=== PATIENT | male | born 1955 | race Caucasian/White ===

== ENCOUNTER 2019-09-04 09:14 | Observation (INO) ==
[2019-09-04 09:19] VITALS: BMI 27.3
--- NOTE | 2019-09-04 09:40 | DR.ABDMALE ---
HPI Time seen Time Seen by Provider: 09/04/19 09:29 PCP Primary Care Physician: PRISCILA Complaint Chief Complaint Doctors Comments: multiple medical problems, diabetes, heart disease, copd, tobacco abuse Chief Complaint:: PT C/O SEVERE EPIGASTRIC PAIN THAT HAS BEEN GOING ON SINCE WEDNESDAY. PT WAS REFFERRED BY PCP D/T A ABD ULTRASOUND THAT SHOWS PT HAS CHOLELITHIASIS. PT HAS BEEN VOMITTING AND HAVING DIARRHEA. COVID-19 Coronavirus risk:travel/contact w/high risk person: No Has patient experienced Coronavirus symptoms: No Reviewed Nurses Notes Review: Yes Mode of arrival Mode of Arrival: Ambulatory Timing Onset of Chief Complaint: 08/30/19 Came on: Gradually Duration Duration: Intermittent How lon Duration: Days Location Location: RUQ and Epigastric Severity Severity: Moderate Quality Quality: Burning Context Onset: Gradually Modifying factors Worsening Factors: Food Improving Factors: Food Associated signs and symptoms Associated Signs and Symptoms: Nausea, Vomiting and Diarrhea PMH PMH Past Medical History: Yes Past Medical History: Diabetes, Dyslipidemia, GERD, Hypertension, NC and Renal Disease Past Surgical History: Yes Surgical History: Angioplasty/Stents and Ortho Surgery Past Surgical History Comment: SHOULDER, BACK, LEG, LUNG REMOVAL Family History History of Family Medical Conditions: No Social History Does patient currently use any type of tobacco product: Yes Have you used tobacco products in the last 12 months: Yes Type of Tobacco Use: Cigarettes Does any household member use tobacco: Yes Alcohol Use: None Do you use any recreational Drugs:: No Lives With: Family Lives Where: Home Travel Risk Coronavirus risk:travel/contact w/high risk person: No Has patient experienced Coronavirus symptoms: No Infectious screening In the last 2 months have you had wt loss of >10#?: NO Have you had fever, night sweats or hemotysis?: No Have you traveled outside the country in the last 6 months?: No Isolation: Standard ROS Review of Systems Constitutional: No Symptoms Reported Eyes: No Symptoms Reported ENTM: No Symptoms Reported Respiratoy: No Symptoms Reported Cardiovascular: Chest Pain Gastrointestinal/Abdominal: Abdominal Pain, Diarrhea, Nausea and Vomiting Genitourinary: No Symptoms Reported Neurological: No Symptoms Reported Musculoskeletal: No Symptoms Reported Integumentary: No Symptoms Reported Hematologic/Lymphatic: No Symptoms Reported Endocrine: No Symptoms Reported Psychiatric: No Symptoms Reported All Other Systems: Reviewed and Negative PE Vital Signs Vital Signs: Temp Pulse Resp BP Pulse Ox 09/04/19 15:05 97.8 F 87 20 104/55 100 09/04/19 15:00 90 20 112/60 99 09/04/19 14:55 97.8 F 91 H 20 127/71 99 09/04/19 13:31 98.1 F 70 20 120/63 94 L 09/04/19 13:30 73 94 L 09/04/19 13:23 75 09/04/19 12:30 76 22 109/76 09/04/19 12:00 72 20 113/63 09/04/19 11:45 70 20 09/04/19 11:30 71 21 125/62 09/04/19 11:15 72 20 09/04/19 11:00 72 22 126/63 09/04/19 10:45 76 22 09/04/19 10:30 78 23 153/71 09/04/19 10:15 81 22 09/04/19 10:00 80 24 155/73 93 L 09/04/19 09:58 80 95 09/04/19 09:15 98.1 F 90 20 137/85 96 General Limitations: No Limitations General Appearance: Alert Head Head Exam: Normal Inspection and Normocephalic Eyes Eye exam: Normal Appearance and EOMI ENT ENT Exam: Normal Exam Neck Neck Exam: Normal Inspection, Full ROM and Trachea Midline Chest Chest Inspection: Normal Inspection Respiratory Respiratory Exam: Normal Lung Sounds Bilat Respiratory Exam: Bilateral: Clear to Auscultation Cardiovascular Cardiovascular Exam: Regular Rate Abdominal Exam Abdominal Exam: Normal Inspection, Normal Bowel Sounds, Soft and Tenderness (epigastric); negative Distention and Guarding Rectal Rectal Exam: Deferred Back Back Exam: Normal Inspection and Full ROM Extremeties Extremities Exam: Normal Inspection and Full ROM Exam: Male: Deferred Neurologic Neurological Exam: Alert, Oriented X3 and CN II-XII Intact Skin Skin Exam: Warm and Normal Color COURSE Consultation Called: 11:27 Call Returned: 12:27 Consultation Comments: DR. MALLORY saw patient in ER and will take him to surgery. [facility]OR Labs Reviewed Result Diagrams: 09/04/19 09:54 09/04/19 09:54 Laboratory: WBC 10.9 X10^3/uL (3.6-10.0) H 09/04/19 09:54 RBC 5.28 X10^6/uL (4.7-6.0) 09/04/19 09:54 Hgb 16.1 g/dL (13.5-18.0) 09/04/19 09:54 Hct 48.2 % (42.0-54.0) 09/04/19 09:54 MCV 91.3 fL (80.0-100.0) 09/04/19 09:54 MCH 30.4 pg (27.0-34.0) 09/04/19 09:54 MCHC 33.3 g/dL (33.0-35.0) 09/04/19 09:54 RDW 14.4 % (11.6-16.5) 09/04/19 09:54 Plt Count 174 X10^3/uL (150.0-450.0) 09/04/19 09:54 MPV 8.3 fL (7.4-11.0) 09/04/19 09:54 Neut % (Auto) 77.2 % (42.0-75.0) H 09/04/19 09:54 Lymph % (Auto) 14.6 % (21.0-51.0) L 09/04/19 09:54 [place] % (Auto) 7.0 % (0.0-13.0) 09/04/19 09:54 Eos % (Auto) 0.6 % (0.9-2.9) L 09/04/19 09:54 Baso % (Auto) 0.6 % (0.2-1.0) 09/04/19 09:54 Neut # (Auto) 8.4 x10^3/uL (2.2-4.8) H 09/04/19 09:54 Lymph # (Auto) 1.6 X10^3/uL (1.3-2.9) 09/04/19 09:54 [place] # (Auto) 0.8 x10^3/uL (0.3-0.8) 09/04/19 09:54 Eos # (Auto) 0.1 x10^3/uL (0.0-0.2) 09/04/19 09:54 Baso # (Auto) 0.1 X10^3/uL (0.0-0.1) 09/04/19 09:54 Absolute Nucleated RBC 0.0 /100WBC 09/04/19 09:54 PT 12.5 SECONDS (11.8-14.3) 09/04/19 09:54 INR Target Range - 09/04/19 09:54 INR 0.96 (0.8-1.3) 09/04/19 09:54 Sodium 137 mmol/L (136-145) 09/04/19 09:54 Corrected Sodium 137 mmol/L (136-145) 09/04/19 09:54 Potassium 4.1 mmol/L (3.5-5.1) 09/04/19 09:54 Chloride 100 mmol/L (98-107) 09/04/19 09:54 Carbon Dioxide 25.8 mmol/L (21-32) 09/04/19 09:54 BUN 14 mg/dL (7-18) 09/04/19 09:54 Creatinine 1.24 mg/dL (0.70-1.30) 09/04/19 09:54 Est GFR (MDRD) Af Amer > 60 (>60) 09/04/19 09:54 Est GFR (MDRD) Non-Af > 60 (>60) 09/04/19 09:54 Glucose 119 mg/dL (65-99) H 09/04/19 09:54 Calcium 10.3 mg/dL (8.5-10.1) H 09/04/19 09:54 Corrected Calcium TNP 09/04/19 09:54 Magnesium 1.9 mg/dL (1.7-2.9) 09/04/19 09:54 Total Bilirubin 0.90 mg/dL (0.2-1.0) 09/04/19 09:54 AST 18 Units/L (15-37) 09/04/19 09:54 ALT 21 Units/L (12-78) 09/04/19 09:54 Alkaline Phosphatase 95 Units/L (46-116) 09/04/19 09:54 Creatine Kinase 43 Units/L (39-308) 09/04/19 09:54 CK-MB (CK-2) < 1.0 ng/mL (0-4.0) 09/04/19 09:54 CK/CKMB % Calc 2.3 % (<4) 09/04/19 09:54 Troponin I < 0.02 ng/mL (0-1.5) 09/04/19 09:54 Total Protein 8.0 g/dL (6.4-8.2) 09/04/19 09:54 Albumin 4.3 g/dL (3.4-5.0) 09/04/19 09:54 Globulin 3.7 g/dL (2.5-4.5) 09/04/19 09:54 Albumin/Globulin Ratio 1.2 Ratio (1.1-2.1) 09/04/19 09:54 Lipase 385 Units/L (73-393) 09/04/19 09:54 Specimen Type Clean catch urine 09/04/19 10:13 Urine Color Yellow (YELLOW) 09/04/19 10:13 Urine Appearance Hazy (CLEAR) 09/04/19 10:13 Urine pH 8.0 (5.0 - 8.0) 09/04/19 10:13 Ur Specific [place] 1.020 (1.000-1.030) 09/04/19 10:13 Urine Protein 3+ (NEGATIVE) 09/04/19 10:13 Urine Glucose (UA) Negative (NEGATIVE) 09/04/19 10:13 Urine Ketones 2+ (NEGATIVE) 09/04/19 10:13 Urine Occult Blood Negative (NEGATIVE) 09/04/19 10:13 Urine Nitrite Negative (NEGATIVE) 09/04/19 10:13 Urine Bilirubin Negative (NEGATIVE) 09/04/19 10:13 Urine Urobilinogen Normal (NORMAL) 09/04/19 10:13 Ur Leukocyte Esterase 1+ (NEGATIVE) 09/04/19 10:13 Urine RBC None seen /HPF (0-3) 09/04/19 10:13 Urine WBC 0-2 /HPF (0-5) 09/04/19 10:13 Ur Squamous Epith Cells Negative /HPF (NEGATIVE) 09/04/19 10:13 Urine Bacteria Negative /HPF (NEGATIVE) 09/04/19 10:13 Ur Culture Indicated? No/not indicated 09/04/19 10:13 XRAY XRAY Interpreted by: Radiologist X-ray Results: chest: no acute disease, vascular calcifications EKG Rate: 82 [place]: LAD Rhythm: NSR Block: None ST: Nonsp Opioid Opioid Risk Tool Age ([place] box if 16-45): No History of Preadolescent Sexual Abuse: No Total: 0 Total Score Risk Category: Low Risk Copyright: Chand LR predicting aberrant behaviors Diagnosis Discharge Problem: Cholelithiasis Qualifiers: Cholelithiasis location: gallbladder Cholecystitis presence: without cholecystitis Biliary obstruction: without biliary obstruction Qualified Code(s): K80.20 - Calculus of gallbladder without cholecystitis without obstruction
[2019-09-04] MEDS ORDERED: ZOFRAN INJ 4 MG VIAL IVP ONE (09:46)
[2019-09-04] MEDS ORDERED: PROTONIX INJ 40 MG VIAL ONE (09:52)
[2019-09-04] MEDS ORDERED: ZOFRAN INJ 4 MG VIAL ONE ×2 (09:52→12:56)
[2019-09-04] MEDS ORDERED: NS 1000 ML 1,000 ML ONE (09:52)
[2019-09-04] MEDS ORDERED: NS 1000 ML 1,000 ML IV SCH (10:00)
[2019-09-04] MEDS: PROTONIX INJ 40 MG VIAL IVP SCH (10:00)
--- NOTE | 2019-09-04 10:01 | RAD ---
HISTORYCOPD,C/O EPIGASTRIC PAIN, N/V, CHOLELITHIASISSTUDYCHEST, 1 [id number] heart size. There is a lower cervical fusion. There is no evidence of pneumothorax. No evidence of pleural effusionsNo suspicious for focal pneumonia. There is again seen elevation of the right diaphragm. Mild prominence of the aortic knob.IMPRESSIONNo acute cardiopulmonary disease. Stable elevation of the right diaphragm.Electronically signed by: Diana Toribio (Sep 04, 2019 10:00:42)
[2019-09-04 10:02] LABS: BASOPHILS # (AUTO) 0.1 X10^3/uL (0.0-0.1); BASOPHILS % (AUTO) 0.6 % (0.2-1.0); EOSINOPHILS # (AUTO) 0.1 x10^3/uL (0.0-0.2); EOSINOPHILS % (AUTO) 0.6 % (0.9-2.9); HEMATOCRIT 48.2 % (42.0-54.0); HEMOGLOBIN 16.1 g/dL (13.5-18.0); LYMPHOCYTES # (AUTO) 1.6 X10^3/uL (1.3-2.9); LYMPHOCYTES % (AUTO) 14.6 % (21.0-51.0); MEAN CORPUSCULAR HEMOGLOBIN 30.4 pg (27.0-34.0); MEAN CORPUSCULAR HGB CONC 33.3 g/dL (33.0-35.0); MEAN CORPUSCULAR VOLUME 91.3 fL (80.0-100.0); MEAN PLATELET VOLUME 8.3 fL (7.4-11.0); MONOCYTES # (AUTO) 0.8 x10^3/uL (0.3-0.8); NEUTROPHILS # (AUTO) 8.4 x10^3/uL (2.2-4.8); NEUTROPHILS % (AUTO) 77.2 % (42.0-75.0); PLATELET COUNT 174 X10^3/uL (150.0-450.0); RED BLOOD COUNT 5.28 X10^6/uL (4.7-6.0); RED CELL DISTRIBUTION WIDTH 14.4 % (11.6-16.5); WHITE BLOOD COUNT 10.9 X10^3/uL (3.6-10.0)
[2019-09-04 10:17] LABS: BLOOD UREA NITROGEN 14 mg/dL (7-18); CALCIUM 10.3 mg/dL (8.5-10.1); CARBON DIOXIDE 25.8 mmol/L (21-32); CHLORIDE 100 mmol/L (98-107); COR NA(FOR HYPERGLY) 137 mmol/L (136-145); CREATININE 1.24 mg/dL (0.70-1.30); SODIUM 137 mmol/L (136-145); TROPONIN I < 0.02 ng/mL (0-1.5); eGFR NON BLACK RACES > 60 (>60)
[2019-09-04 10:21] LABS: ALANINE AMINOTRANSFERASE 21 Units/L (12-78); ALBUMIN 4.3 g/dL (3.4-5.0); ALKALINE PHOSPHATASE 95 Units/L (46-116); ASPARTATE AMINO TRANSFERASE 18 Units/L (15-37); CKMB % 2.3 % (<4); CREATINE KINASE 43 Units/L (39-308); CREATINE KINASE MB < 1.0 ng/mL (0-4.0); LIPASE 385 Units/L (73-393); MAGNESIUM 1.9 mg/dL (1.7-2.9)
[2019-09-04 10:27] LABS: BILIRUBIN,URINE NEGATIVE (NEGATIVE); BLOOD/HEMOGLOBIN,URINE NEGATIVE (NEGATIVE); GLUCOSE, URINE NEGATIVE (NEGATIVE); KETONES,URINE 2+ (NEGATIVE); LEUKOCYTE ESTERASE ,URINE 1+ (NEGATIVE); NITRITES,URINE NEGATIVE (NEGATIVE); PROTEIN,URINE 3+ (NEGATIVE); UROBILINOGEN,URINE NORMAL (NORMAL)
[2019-09-04 10:37] LABS: APPEARANCE,URINE HAZY (CLEAR); COLOR,URINE YELLOW (YELLOW)
[2019-09-04 10:39] LABS: BACTERIA,URINE NEGATIVE /HPF (NEGATIVE); RBC,URINE NONE SEEN /HPF (0-3); SQUAMOUS EPITHELIAL CELL,UR NEGATIVE /HPF (NEGATIVE)
[2019-09-04] MEDS ORDERED: LEVAQUIN PREMIX IV 500 MG 500 MG/100 ML BAG IV ONE (12:32)
[2019-09-04] MEDS ORDERED: LTA KIT LIDOCAINE 4% ONE (12:56)
[2019-09-04] MEDS ORDERED: NORCURON INJ 10 MG VIAL ONE (12:56)
[2019-09-04] MEDS ORDERED: TORADOL 30 MG VIAL ONE (12:56)
[2019-09-04] MEDS ORDERED: SUPRANE ONE (12:56)
[2019-09-04] MEDS ORDERED: VERSED ONE (12:56)
[2019-09-04] MEDS ORDERED: REGLAN INJ 10 MG VIAL ONE (12:56)
[2019-09-04] MEDS ORDERED: XYLOCAINE 2 % (PLAIN) ONE (12:56)
[2019-09-04] MEDS ORDERED: QUELICIN (OR ANECTINE) ONE (12:56)
[2019-09-04] MEDS ORDERED: EPHEDRINE SULFATE INJ ONE (12:56)
[2019-09-04] MEDS ORDERED: NEOSTIGMINE INJ ONE (12:56)
[2019-09-04] MEDS ORDERED: LEVAQUIN PREMIX IV 500 MG 500 MG/100 ML BAG IV SCH (13:00)
[2019-09-04] MEDS ORDERED: DUONEB 0.5 MG/3 MG (3 mL) NEB ONE (13:28)
[2019-09-04] MEDS ORDERED: FENTANYL INJ 250 mcg ONE (13:30)
[2019-09-04] MEDS: DUONEB 0.5 MG/3 MG (3 mL) NEB ONE ×2 (13:30→15:34)
[2019-09-04] MEDS ORDERED: LR 1000 ML IV 1,000 ML IV ONE (13:47)
[2019-09-04] MEDS ORDERED: BACTROBAN CREAM TOP ONE (14:38)
[2019-09-04] MEDS ORDERED: PHENERGAN INJ 25 MG IM PRN (15:13)
[2019-09-04] MEDS ORDERED: REGLAN INJ 10 MG VIAL IVP PRN (15:13)
[2019-09-04] MEDS ORDERED: ZOFRAN INJ 4 MG VIAL IVP PRN (15:13)
[2019-09-04] MEDS ORDERED: DILAUDID INJ IVP PRN ×2 (15:13→15:51)
[2019-09-04] MEDS ORDERED: BENADRYL INJ 50 MG VIAL IVP PRN (15:13)
[2019-09-04] MEDS ORDERED: PROVENTIL NEB TX 0.083% 2.5MG/ 3ML NEB PRN ×2 (15:36→16:14)
[2019-09-04] MEDS: D5 1/2 NS 1000 ML 1,000 ML IV SCH (17:55)
[2019-09-04] MEDS: DILAUDID INJ IVP PRN ×2 (20:09→23:57)
[2019-09-04] MEDS ORDERED: PROVENTIL NEB TX 0.083% 2.5MG/ 3ML NEB SCH (21:00)
[2019-09-04] MEDS: PROVENTIL NEB TX 0.083% 2.5MG/ 3ML NEB SCH (21:58)
[2019-09-05] MEDS: D5 1/2 NS 1000 ML 1,000 ML IV SCH ×2 (02:00→08:23)
[2019-09-05] MEDS: DILAUDID INJ IVP PRN (03:53)
[2019-09-05 06:34] LABS: BASOPHILS % (AUTO) 0.3 % (0.2-1.0); EOSINOPHILS # (AUTO) 0.1 x10^3/uL (0.0-0.2); EOSINOPHILS % (AUTO) 0.7 % (0.9-2.9); HEMATOCRIT 42.1 % (42.0-54.0); HEMOGLOBIN 13.9 g/dL (13.5-18.0); LYMPHOCYTES # (AUTO) 2.1 X10^3/uL (1.3-2.9); LYMPHOCYTES % (AUTO) 21.1 % (21.0-51.0); MEAN CORPUSCULAR HEMOGLOBIN 30.2 pg (27.0-34.0); MEAN CORPUSCULAR HGB CONC 33.1 g/dL (33.0-35.0); MEAN CORPUSCULAR VOLUME 91.4 fL (80.0-100.0); MEAN PLATELET VOLUME 8.9 fL (7.4-11.0); MONOCYTES # (AUTO) 0.8 x10^3/uL (0.3-0.8); MONOCYTES % (AUTO) 8.6 % (0.0-13.0); NEUTROPHILS # (AUTO) 6.8 x10^3/uL (2.2-4.8); NEUTROPHILS % (AUTO) 69.3 % (42.0-75.0); PLATELET COUNT 148 X10^3/uL (150.0-450.0); RED CELL DISTRIBUTION WIDTH 14.7 % (11.6-16.5); WHITE BLOOD COUNT 9.8 X10^3/uL (3.6-10.0)
[2019-09-05 06:58] LABS: ALANINE AMINOTRANSFERASE 26 Units/L (12-78); ALBUMIN 3.6 g/dL (3.4-5.0); ALKALINE PHOSPHATASE 81 Units/L (46-116); ASPARTATE AMINO TRANSFERASE 18 Units/L (15-37); BLOOD UREA NITROGEN 12 mg/dL (7-18); CALCIUM 8.8 mg/dL (8.5-10.1); CARBON DIOXIDE 24.2 mmol/L (21-32); CHLORIDE 102 mmol/L (98-107); COR NA(FOR HYPERGLY) 136 mmol/L (136-145); CREATININE 1.16 mg/dL (0.70-1.30); SODIUM 136 mmol/L (136-145); eGFR NON BLACK RACES > 60 (>60)
[2019-09-05] MEDS: PROVENTIL NEB TX 0.083% 2.5MG/ 3ML NEB SCH (08:00)
[2019-09-05] MEDS: PROTONIX INJ 40 MG VIAL IVP SCH (08:23)
[2019-09-05] MEDS ORDERED: LEVAQUIN PREMIX IV 500 MG 500 MG/100 ML BAG IV SCH (09:00)
[2019-09-05 09:27] VITALS: BP 128/72
[2019-09-05] MEDS ORDERED: VERSED ONE (12:58)
[2019-09-05] MEDS ORDERED: DIPRIVAN VIAL ONE (12:58)
[2019-09-05] MEDS ORDERED: ULTANE GAS IN ONE (12:58)
[2019-09-05] MEDS ORDERED: DECADRON INJ ONE (12:58)
[2019-09-05] MEDS ORDERED: XYLOCAINE 1 % (PLAIN) ONE (12:58)
[2019-09-05] MEDS ORDERED: ZOFRAN INJ 4 MG VIAL ONE (12:58)
[2019-09-05] MEDS ORDERED: TORADOL 30 MG VIAL ONE (12:58)
== END 2019-09-05 11:05 | disposition home or self-care (01) ==
LOC: ER 09:24 → MED/SURG 09:24 → ER 13:15 → MED/SURG 17:09
PROVIDERS: ADMIT Surgery; ATTEND Surgery
DX: R10.13 Epigastric pain; I10 Essential (primary) hypertension; K21.9 Gastro-esophageal reflux disease without esophagitis; J44.9 Chronic obstructive pulmonary disease, unspecified; E11.65 Type 2 diabetes mellitus with hyperglycemia; K80.12 Calculus of gallbladder with acute and chronic cholecystitis without obstruction; I25.10 Atherosclerotic heart disease of native coronary artery without angina pectoris; R19.7 Diarrhea, unspecified; E78.2 Mixed hyperlipidemia; Z72.0 Tobacco use
CPT/HCPCS: 36415; 71010; 71045; 80053; 81001; 82550; 82553; 83690; 83735; 84484; 85025; 85610; 93005; 94640; 96360; 96361; 96365; 96374; 96375; 99284; 99285; A4216; A4222; C9113; G0378; J0330; J1100; J1170; J1885; J1956; J2250; J2405; J2704; J2710; J2765; J3010; J3490; J7030; J7120; J7613; J7620; S5010